=== PATIENT | female | born 2000 | race African-American/Black ===

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

== ENCOUNTER 2022-05-26 12:16 | Emergency (ER) | payer OTHER ==
[2022-05-26 12:52] LABS: #Eosinphils 0.1 thou/uL (0.0-0.7); #Lymphocytes 1.3 thou/uL (1.20-3.40); #Monocytes 0.5 thou/uL (0.11-0.59); #Neutrophils 5.8 thou/uL (1.40-6.50); %Basophils 0.3 % (0.0-1.0); %Eosinophils 1.3 % (0.0-10.0); %Lymphocytes 16.9 % (28.0-48.0); %Monocytes 6.6 % (0.0-4.0); %Neutrophils 74.9 % (31.0-61.0); Hemoglobin 13.6 g/dL (12.0-16.0); Mean Corpuscular HGB CONC 32.8 g/dL (32.0-36.0); Mean Corpuscular Hemoglobin 29.5 pg (25.0-35.0); Mean Corpuscular Volume 89.8 fl (78.0-98.0); Mean Platelet Volume 8.2 fL (7.4-10.4); Platelet Count 225 10x3/uL (130-400); RBC Distribution Width 13.2 % (11.5-14.5); White Blood Cell (WBC) Count 7.7 10x3/uL (4.8-10.8)
[2022-05-26 13:05] LABS: BHCG - Serum Negative (NEGATIVE); Pregs Control Background? CLEAR/WHITE (CLR/WHITE); Pregs Control Bar Appear? YES (CONTROL BAR)
[2022-05-26 13:08] LABS: Acetaminophen Less than 10.0 mcg/mL (10.0-30.0); Alcohol Less than 10 mg/dL (Less than 10); Salicylate Less than 8.0 mg/dL (15.0-30.0)
[2022-05-26 13:09] LABS: ALT (SGPT) 14 U/L (8-55); AST (SGOT) 21 U/L (5-30); Albumin 4.9 g/dL (3.5-5.0); Alkaline Phosphatase 31 U/L (40-100); Anion Gap 15 mmol/L (10-20); BUN (Urea Nitrogen) 13 mg/dL (8.4-21.0); Bilirubin, Total 0.5 mg/dL (0.2-1.2); Calc. Creatinine Clearance 0 mL/min (70-130); Calcium 10.4 mg/dL (7.8-10.44); Carbon Dioxide 22 mmol/L (22-29); Chloride 103 mmol/L (98-107); Estimated GFR 81; Globulin 4.1 g/dL (2.4-3.5); Glucose 78 mg/dL (70-105); Sodium 136 mmol/L (136-145)
[2022-05-26] MEDS ORDERED: Ketorolac Tromethamine 30 MG/ML VIAL ONE (14:06)
== END 2022-05-26 14:33 | disposition home or self-care (01) ==
LOC: ERS 12:16
DX: S02.2XXA Fracture of nasal bones, initial encounter for closed fracture (principal); Y04.2XXA Assault by strike against or bumped into by another person, initial encounter
CPT/HCPCS: 70450; 70486; 71045; 72125; 80053; 80307; 83735; 84703; 85025; 93005; 93010; 96374; J1885

== ENCOUNTER 2022-09-08 18:12 | Emergency (ER) | payer MEDICAID, SELFPAY ==
[2022-09-08 19:28] LABS: #Monocytes 0.4 thou/uL (0.11-0.59); #Neutrophils 3.5 thou/uL (1.40-6.50); %Basophils 0.8 % (0.0-1.0); %Eosinophils 0.7 % (0.0-10.0); %Lymphocytes 33.2 % (28.0-48.0); %Neutrophils 59.4 % (31.0-61.0); Hemoglobin 13.4 g/dL (12.0-16.0); Mean Corpuscular HGB CONC 33.5 g/dL (32.0-36.0); Mean Corpuscular Hemoglobin 30.8 pg (25.0-35.0); Mean Corpuscular Volume 91.9 fl (78.0-98.0); Mean Platelet Volume 7.4 fL (7.4-10.4); Platelet Count 233 10x3/uL (130-400); RBC Distribution Width 12.2 % (11.5-14.5); Red Blood Cell (RBC) Count 4.35 mill/uL (4.00-5.20)
[2022-09-08 19:47] LABS: ALT (SGPT) 8 U/L (8-55); AST (SGOT) 19 U/L (5-30); Albumin 4.6 g/dL (3.5-5.0); Alkaline Phosphatase 28 U/L (40-100); Anion Gap 11 mmol/L (10-20); BUN (Urea Nitrogen) 10 mg/dL (8.4-21.0); Bilirubin, Total 0.5 mg/dL (0.2-1.2); Calc. Creatinine Clearance 0 mL/min (70-130); Calcium 9.6 mg/dL (7.8-10.44); Carbon Dioxide 22 mmol/L (22-29); Chloride 105 mmol/L (98-107); Estimated GFR 103; Globulin 3.6 g/dL (2.4-3.5); Glucose 92 mg/dL (70-105); Potassium 3.4 mmol/L (3.5-5.1); Protein, Total 8.2 g/dL (6.0-8.3); Sodium 135 mmol/L (136-145)
[2022-09-08] MEDS ORDERED: Ketorolac Tromethamine 30 MG/ML VIAL ONE (20:14)
[2022-09-09 01:18] LABS: BHCG - Serum Negative (NEGATIVE); Pregs Control Background? CLEAR/WHITE (CLR/WHITE); Pregs Control Bar Appear? YES (CONTROL BAR)
[2022-09-09] MEDS ORDERED: Morphine 4 MG/ML VIAL ONE (01:58)
[2022-09-09] MEDS ORDERED: Ondansetron PF 4 MG/2 ML Vial ONE (01:59)
[2022-09-09] MEDS ORDERED: HYDROmorphone 0.5 MG/0.5 ML SYRINGE ONE (02:57)
== END 2022-09-09 03:31 | disposition short-term general hospital (02) ==
LOC: ERS 18:12
DX: N83.511 Torsion of right ovary and ovarian pedicle (principal)
CPT/HCPCS: 36415; 76856; 80053; 84703; 85025; 96372; 96374; 96375; J1170; J1885; J2270; J2405